=== PATIENT | female | born 2000 | race Two or more races ===

== ENCOUNTER 2023-04-23 12:13 | Emergency (ER) | payer OTHER ==
[2023-04-23 12:36] VITALS: BP 115/65; PULSE 135; RESP 18; TEMP 98.9; BMI 18.3
[2023-04-23] MEDS ORDERED: ONDANSETRON *ODT* 4 MG TABLET SL ONE (14:35)
[2023-04-23] MEDS ORDERED: ACETAMINOPHEN 500 MG TABLET (FP) PO ONE (14:36)
== END 2023-04-23 16:08 | disposition home or self-care (01) ==
LOC: JERFT 12:13
DX: R21 Rash and other nonspecific skin eruption (principal); L29.9 Pruritus, unspecified; R11.2 Nausea with vomiting, unspecified; R19.7 Diarrhea, unspecified; A05.9 Bacterial foodborne intoxication, unspecified; T78.40XA Allergy, unspecified, initial encounter
CPT/HCPCS: 99283-25